=== PATIENT | female | born 1975 | race Caucasian/White ===

== ENCOUNTER 2017-05-31 18:25 | Emergency (ER) | payer OTHER ==
[~2017-05-31] VITALS: Ht 162.6 cm; Wt 86.4 kg
[~2017-05-31 18:25] MED LIST: BACL10TA4; CETI-55; CHOL500010 PO; ENAL5TAB76; GABA-560; INSULIN HUMALOG PUMP; IRON65TA3 PO; LISI10TA11 PO; LOVA20TA2 PO; METF500T PO; OMEP20EC6; PREN-371; SIMV20TA6
[2017-05-31 18:44] VITALS: BP 138/93
[2017-05-31 19:31] LABS: APPEARANCE,URINE TURBID (CLEAR); BILIRUBIN,URINE NEGATIVE (NEGATIVE); BLOOD, URINE 2+ (NEGATIVE); COLOR,URINE YELLOW (YELLOW); LEUKOCYTE ESTERASE ,URINE 1+ (NEGATIVE); NITRITE, URINE NEGATIVE (NEGATIVE); PH,URINE 5.5 (5.0-9.0); UGLUCOSE NEGATIVE (NEGATIVE)
[2017-05-31 19:53] LABS: RBC,URINE 11-20 (MOD) /HPF (0-5)
[2017-05-31 19:54] LABS: WBC,URINE 60-80 /HPF (0-5)
[2017-05-31 20:15] VITALS: BP 131/88
== END 2017-05-31 20:36 | disposition home or self-care (01) ==
LOC: MED 18:25
DX: N39.0 Urinary tract infection, site not specified (principal); E11.9 Type 2 diabetes mellitus without complications; K21.9 Gastro-esophageal reflux disease without esophagitis; Z88.1 Allergy status to other antibiotic agents; Z88.2 Allergy status to sulfonamides; Z88.8 Allergy status to other drugs, medicaments and biological substances; Z79.899 Other long term (current) drug therapy; Z79.84 Long term (current) use of oral hypoglycemic drugs
CPT/HCPCS: 81001; 81025; 87086; 87186; 99284

== ENCOUNTER 2019-05-19 22:52 | Emergency (ER) | payer OTHER ==
[~2019-05-19] VITALS: Ht 162.6 cm; Wt 93.0 kg
[~2019-05-19 22:52] MED LIST changes: -CHOL500010 PO; +CHOL500021 PO; +ENAL5TAB20; -ENAL5TAB76; +FERR-212 PO; -IRON65TA3 PO; -OMEP20EC6; +OMEP20EC9
[2019-05-19 23:07] VITALS: BP 135/81
[2019-05-19 23:30] VITALS: BP 135/81
== END 2019-05-20 00:05 | disposition home or self-care (01) ==
LOC: MED 22:52
DX: M79.641 Pain in right hand (principal); R51 Headache; E11.9 Type 2 diabetes mellitus without complications; Z88.1 Allergy status to other antibiotic agents; Z88.2 Allergy status to sulfonamides; Z79.84 Long term (current) use of oral hypoglycemic drugs; Z79.4 Long term (current) use of insulin; Z79.899 Other long term (current) drug therapy
CPT/HCPCS: 99282

== ENCOUNTER 2019-11-27 05:04 | Emergency (ER) | payer OTHER ==
[~2019-11-27] VITALS: Ht 162.6 cm; Wt 91.6 kg
[~2019-11-27 05:04] MED LIST changes: -ENAL5TAB20; +ENAL5TAB34; +SIMV-30; -SIMV20TA6
[2019-11-27 05:08] VITALS: BP 157/86
[2019-11-27 06:17] VITALS: BP 157/86
== END 2019-11-27 06:15 | disposition home or self-care (01) ==
LOC: MED 05:04
DX: N39.0 Urinary tract infection, site not specified (principal); E11.9 Type 2 diabetes mellitus without complications; Z88.1 Allergy status to other antibiotic agents; Z88.3 Allergy status to other anti-infective agents; Z88.2 Allergy status to sulfonamides; Z79.899 Other long term (current) drug therapy
CPT/HCPCS: 81002; 81025; 99283

== ENCOUNTER 2020-03-15 23:29 | Emergency (ER) | payer OTHER ==
[~2020-03-15] VITALS: Ht 162.6 cm; Wt 93.0 kg
[2020-03-15 23:42] VITALS: BP 171/89
--- NOTE | 2020-03-16 | NUR ---
PT AMBULATED TO BED #6
--- NOTE | 2020-03-16 00:04 | NUR ---
ERMD AT BEDSIDE EVALUATING PT.
--- NOTE | 2020-03-16 00:24 | NUR ---
STREP SWAB COMPLETED AND GIVEN TO LAB AT BEDSIDE.
--- NOTE | 2020-03-16 00:26 | NUR ---
RECEIVED A 44/F FROM TRIAGE WITH A C/O A SORE THROAT X 1 DAY. PT REPORTS +SICK CONTACTS AT HOME, PARTNER HAS STREP THROAT. IN BED FOR MSE. NO DISTRESS NOTED.
[2020-03-16 01:35] VITALS: BP 171/89
== END 2020-03-16 01:35 | disposition home or self-care (01) ==
LOC: MED 23:29
DX: J02.8 Acute pharyngitis due to other specified organisms (principal); E11.9 Type 2 diabetes mellitus without complications; Z88.1 Allergy status to other antibiotic agents; Z88.8 Allergy status to other drugs, medicaments and biological substances; Z79.899 Other long term (current) drug therapy
CPT/HCPCS: 87081; 99283

== ENCOUNTER 2020-06-26 04:04 | Emergency (ER) | payer OTHER ==
[~2020-06-26] VITALS: Ht 162.6 cm; Wt 92.1 kg
[2020-06-26 04:09] VITALS: BP 134/74
--- NOTE | 2020-06-26 04:12 | NUR ---
PT TAKEN TO BED 11
--- NOTE | 2020-06-26 04:18 | NUR ---
45 Y/O FEMALE PRESENTS TO ER WITH C/O BILATERAL FLANK PAIN RADIATING TO PELVIS X1 DAY. 04/23 PAIN. PT HAS PMH OF FREQUENT UTI'S. DENIES SOB, COUGH, FEVER, HEMATURIA, DYSURIA. LMP 06/14/20. A&O X4, VSS, R/R EQUAL, AND UNLABORED. SIDE RAIL X1, BED IN LOW POSITION, WILL CONTINUE TO MONITOR. PMH: DM ALLERGY: BACTRIM, MACROBID, ERYTHROMYCIN
--- NOTE | 2020-06-26 04:25 | NUR ---
PT AMBUALTED TO RESTROOM WITH STEADY GAIT AND PROVIDED UA SAMPLE.
--- NOTE | 2020-06-26 04:27 | NUR ---
Dr. Wetzel examining patient.
[2020-06-26] MEDS ORDERED: PHENAZOPYRIDINE 100 MG TAB PO ONE (04:35)
[2020-06-26] MEDS ORDERED: levoFLOXacin 500 MG TAB PO ONE (04:35)
[2020-06-26 04:54] VITALS: BP 134/74
--- NOTE | 2020-06-26 04:55 | NUR ---
Patient discharged with v/s stable. Written and verbal after care instructions given and explained. Patient alert, oriented and verbalized understanding of instructions. Ambulatory with steady gait. All questions addressed prior to discharge. ID band removed. Patient advised to follow up with PMD. Rx of PYRIDIUM, CIPRO given. Patient educated on indication of medication including possible reaction and side effects. Opportunity to ask questions provided and answered.
== END 2020-06-26 04:55 | disposition home or self-care (01) ==
LOC: MED 04:04
DX: N39.0 Urinary tract infection, site not specified (principal); R03.0 Elevated blood-pressure reading, without diagnosis of hypertension; E11.9 Type 2 diabetes mellitus without complications; Z88.1 Allergy status to other antibiotic agents; Z88.2 Allergy status to sulfonamides; Z88.3 Allergy status to other anti-infective agents; Z79.899 Other long term (current) drug therapy
CPT/HCPCS: 81002; 81025; 99283

== ENCOUNTER 2021-03-08 00:12 | Emergency (ER) | payer OTHER ==
[~2021-03-08] VITALS: Ht 162.6 cm; Wt 92.1 kg
[~2021-03-08 00:12] MED LIST changes: +LISI-486 PO; -LISI10TA11 PO
[2021-03-08 00:18] VITALS: BP 134/66
[2021-03-08] MEDS ORDERED: guaiFENesin DM 200/20 MG-10 ML 10 ML UDC PO ONE (01:25)
[2021-03-08] MEDS ORDERED: ALBUTEROL SULFATE/IPRATROPIU 3 ML SOL IH ONE (01:25)
[2021-03-08] MEDS ORDERED: CODE-107 PO ×2 (01:29→01:30)
[2021-03-08] MEDS ORDERED: ALBU0.0912 IH (01:29)
[2021-03-08 02:20] VITALS: BP 134/66
== END 2021-03-08 00:20 | disposition home or self-care (01) ==
LOC: MED 00:12
DX: J20.9 Acute bronchitis, unspecified (principal); H92.01 Otalgia, right ear; E11.9 Type 2 diabetes mellitus without complications; Z79.4 Long term (current) use of insulin; Z79.899 Other long term (current) drug therapy; Z88.1 Allergy status to other antibiotic agents; Z88.2 Allergy status to sulfonamides; Z88.8 Allergy status to other drugs, medicaments and biological substances
CPT/HCPCS: 71045; 94640; 99283

== ENCOUNTER 2022-03-15 18:00 | Emergency (ER) | payer OTHER ==
[~2022-03-15] VITALS: Ht 160 cm; Wt 93.9 kg
[~2022-03-15 18:00] MED LIST changes: +ALBU0.0912 IH; +CODE-107 PO; +METF-346 PO; -METF500T PO
[2022-03-15 18:27] VITALS: BP 158/80
--- NOTE | 2022-03-15 19:06 | NUR ---
ALISA CHILEL AT BEDSIDE
--- NOTE | 2022-03-15 19:07 | NUR ---
46 Y/O FEMALE BIB SELF C/O OF BUG BITE AND SWELLING ON THE LEFT HAND EXTENDING TO ELBOW AND ITCHING. DENIES SEEING THE BUG BUT FELT A "PRICK" IN THE AREA. PAIN RADITAING TO THE LEFT ARMPIT. DENIES ANY SOB, N/V/D ALLERGY: CALRITHROMYCIN, ERYTHROMYCIN PMH: HDL, DM
--- NOTE | 2022-03-15 19:12 | NUR ---
Pt report given to ENOCH DUMAS. Transfer of care at this time.
[2022-03-15] MEDS ORDERED: HYD1C TP (19:25)
[2022-03-15 19:40] VITALS: BP 158/80
--- NOTE | 2022-03-15 19:41 | NUR ---
Patient discharged with v/s stable. Written and verbal after care instructions given and explained. Patient alert, oriented and verbalized understanding of instructions. Ambulatory with steady gait. All questions addressed prior to discharge. ID band removed. Patient advised to follow up with PMD. Rx of HYDROCORTISONE given. Patient educated on indication of medication including possible reaction and side effects. Opportunity to ask questions provided and answered.
== END 2022-03-15 19:41 | disposition home or self-care (01) ==
LOC: MED 18:00
DX: S60.562A Insect bite (nonvenomous) of left hand, initial encounter (principal); E11.9 Type 2 diabetes mellitus without complications; Z79.899 Other long term (current) drug therapy; Z79.4 Long term (current) use of insulin; Z88.1 Allergy status to other antibiotic agents; Z88.2 Allergy status to sulfonamides; Z88.8 Allergy status to other drugs, medicaments and biological substances; W57.XXXA Bitten or stung by nonvenomous insect and other nonvenomous arthropods, initial encounter; Y92.89 Other specified places as the place of occurrence of the external cause; Y93.89 Activity, other specified; Y99.8 Other external cause status
CPT/HCPCS: 99282

== ENCOUNTER 2022-11-21 21:00 | Emergency (ER) | payer OTHER ==
[~2022-11-21] VITALS: Ht 160 cm; Wt 88.5 kg
[~2022-11-21 21:00] MED LIST changes: +ENAL-270; -ENAL5TAB34; +HYD1C TP
[2022-11-21 21:29] VITALS: BP 157/78
--- NOTE | 2022-11-21 21:34 | NUR ---
TO LOBBY FOLLOWING TRIAGE
[2022-11-21] MEDS ORDERED: KETOROLAC 30 MG/ML VIAL IM ONE (22:00)
--- NOTE | 2022-11-21 22:23 | NUR ---
PT TAKEN TO XRAY
[2022-11-21 23:55] VITALS: BP 157/78
--- NOTE | 2022-11-21 23:55 | NUR ---
Patient discharged with v/s stable. Written and verbal after care instructions given and explained. Patient verbalized understanding. Ambulatory with steady gait. All questions addressed prior to discharge. Advised to follow up with PMD.
== END 2022-11-21 23:55 | disposition home or self-care (01) ==
LOC: MED 21:00
DX: S16.1XXA Strain of muscle, fascia and tendon at neck level, initial encounter (principal); G89.29 Other chronic pain; M54.50 Low back pain, unspecified; E11.9 Type 2 diabetes mellitus without complications; Z79.899 Other long term (current) drug therapy; Z79.4 Long term (current) use of insulin; Z88.1 Allergy status to other antibiotic agents; Z88.2 Allergy status to sulfonamides; V89.2XXA Person injured in unspecified motor-vehicle accident, traffic, initial encounter; Y93.89 Activity, other specified; Y92.410 Unspecified street and highway as the place of occurrence of the external cause; Y99.8 Other external cause status
CPT/HCPCS: 72040; 72100; 96372; 99284; J1885

== ENCOUNTER 2023-12-17 22:53 | Emergency (ER) | payer OTHER ==
[~2023-12-17] VITALS: Ht 162.6 cm; Wt 86.2 kg
[2023-12-17 23:05] VITALS: BP 140/68; PULSE 90; RESP 17; TEMP 97.8; O2SAT 99
[2023-12-18] VITALS: BP 135/72; PULSE 92; RESP 16; TEMP 98
[2023-12-18 00:01] VITALS: O2SAT 99
[2023-12-18] MEDS ORDERED: VALA1TAB2 PO (01:15)
[2023-12-18] MEDS ORDERED: GABA300C PO (01:15)
[2023-12-18] MEDS ORDERED: CEPH-588 PO (01:15)
== END 2023-12-18 01:28 | disposition home or self-care (01) ==
LOC: MED 22:53
DX: B02.9 Zoster without complications (principal); L03.311 Cellulitis of abdominal wall; E11.9 Type 2 diabetes mellitus without complications; Z98.51 Tubal ligation status; Z98.890 Other specified postprocedural states; Z79.899 Other long term (current) drug therapy; Z79.4 Long term (current) use of insulin; Z88.1 Allergy status to other antibiotic agents; Z88.2 Allergy status to sulfonamides
CPT/HCPCS: 99283